=== PATIENT | female | born 1955 | race Caucasian/White ===

== ENCOUNTER 2017-01-21 18:24 | Emergency (ER) | payer BC ==
[2017-01-21 18:35] VITALS: BP 171/88
--- NOTE | 2017-01-21 18:55 | UC ---
Respiratory Complaint HPI - HPI Summary HPI Summary: 2 DAYS OF HARSH COUGH AND CHEST TIGHTNESS. FEVER TMAX 101.8. TOOK TYLENOL ABOUT AN HOUR AND A HALF AGO. FEELS ACHY AND OVERALL UNWELL. QUIT SMOKING OVER 30 YEARS AGO. - History of Current Complaint Chief Complaint: UCRespiratory Stated Complaint: DIFFICULTY BREATHING, COUGH,FEVER,ACHES Time Seen by Provider: 01/21/17 18:44 Hx Obtained From: Patient Onset/Duration: Gradual Onset, Lasting Days, Still Present Timing: Constant Severity Initially: Moderate Severity Currently: Moderate Pain Intensity: 10 - SITTING COMFORTABLY IN EXAM ROOM Pain Scale Used: 0-10 Numeric Character: Cough: Nonproductive Aggravating Factors: Nothing Alleviating Factors: Nothing Associated Signs And Symptoms: Positive: Fever - Allergies/Home Medications Allergies/Adverse Reactions: Allergies Allergy/AdvReac Type Severity Reaction Status Date / Time No Known Allergies Allergy Verified 09/11/16 10:25 Home Medications: Home Medications Acetaminophen [Tylenol] 650 mg PO 01/21/17 [History] GuaiFENesin DM* [Robitussin DM*] 10 ml PO Q6H PRN 01/21/17 [History Confirmed ] PMH/Surg Hx/FS Hx/Imm Hx Cardiovascular History: Hypertension - Surgical History Surgical History: Yes Surgery Procedure, Year, and Place: oopherectomy, hysterectomy - Family History Known Family History: Positive: Hypertension - Social History Alcohol Use: Daily Substance Use Type: None Smoking Status (MU): Never Smoked Tobacco Review of Systems Constitutional: Fever Respiratory: Cough Cardiovascular: Negative Gastrointestinal: Negative Musculoskeletal: Arthralgia, Myalgia All Other Systems Reviewed And Are Negative: Yes Physical Exam Triage Information Reviewed: Yes Appearance: Well-Appearing, No Pain Distress, Well-Nourished Vital Signs: Initial Vital Signs Temp 100.8 F 01/21/17 18:26 Pulse 97 01/21/17 18:26 Resp 18 01/21/17 18:26 BP 171/88 01/21/17 18:26 Pulse Ox 97 01/21/17 18:26 Vital Signs Reviewed: Yes Eyes: Positive: Conjunctiva Clear ENT: Positive: Hearing grossly normal, Pharynx normal, TMs normal Neck: Positive: Supple, Nontender, No Lymphadenopathy Respiratory Exam: Normal Cardiovascular Exam: Normal Abdomen Description: Positive: Soft Musculoskeletal: Positive: No Edema Neurological: Positive: Alert Psychological: Positive: Age Appropriate Behavior Skin: Negative: rashes UC Diagnostic Evaluation - Laboratory O2 Sat by Pulse Oximetry: 97 - Radiology Xray Interpretation: No Acute Changes - CHEST XRAY Radiology Interpretation Completed By: Radiologist Respiratory Course/Dx - Differential Dx/Diagnosis Provider Diagnoses: ACUTE BRONCHITIS Discharge - Discharge Plan Condition: Stable Disposition: HOME Prescriptions: Azithromycin [Azithromycin 500 MG TAB] 500 mg PO DAILY #4 tab guaiFENesin/CODIEN 100MG-10MG* [Robitussin AC 100Mg-10Mg*] 5 - 10 ml PO Q6H PRN #150 ml MDD 40 ml PRN Reason: Cough Patient Education Materials: Acute Bronchitis (ED) Referrals: Lucas Mehta MD [Primary Care Provider] - If Needed Additional Instructions: CHEST XRAY UNREMARKABLE TODAY. BE AWARE THAT THERE IS A GOOD CHANCE THAT YOUR SYMPTOMS ARE VIRAL AND WILL GET BETTER ON THEIR OWN WITH TIME BUT GIVEN YOUR PRESENTATION WE WILL COVER FOR BACTERIAL INFECTION WITH AZITHROMYCIN. SEEK FOLLOW-UP IF NOT IMPROVING EXPECTED.
[2017-01-21] MEDS ORDERED: Ibuprofen TAB* 600 MG PO ONE (19:06)
--- NOTE | 2017-01-21 19:34 | RAD ---
INDICATION: Cough and fever COMPARISON: None TECHNIQUE: PA and lateral dual-energy views were obtained. FINDINGS: Bones/Soft Tissues: There are no acute bony findings. There is a scoliotic deformity. Cardiomediastinal: The cardiomediastinal silhouette is normal. Lungs: There are no infiltrates. Pleura: There are no pleural effusions. Other: None IMPRESSION: NO ACTIVE DISEASE.
[2017-01-21] MEDS ORDERED: Azithromycin TAB* 250 MG PO ONE (19:51)
[2017-01-21] MEDS ORDERED: guaiFENesin/CODIEN 100MG-10MG* 5 ML UDC PO ONE (19:52)
== END 2017-01-21 20:00 | disposition home or self-care (01) ==
LOC: UCEAST 18:24
DX: J20.9 Acute bronchitis, unspecified (principal)
CPT/HCPCS: 71020; 99213; A9270-GY; G0463

== ENCOUNTER 2022-05-25 18:24 | Observation (INO) ==
[2022-05-25 18:53] LABS: ABS Lymphocytes 1.7 10^3/ul (1.0-4.8); ABS Monocytes 0.6 10^3/ul (0-0.8); ABS Neutrophils 2.4 10^3/ul (1.5-7.7); Eosinophil % 0.5 %; Hematocrit 41 % (35-47); Hemoglobin 13.4 g/dL (12.0-16.0); Lymphocyte % 36.2 %; Mean Corpuscular HGB Conc 33 g/dL (31-36); Mean Corpuscular Hemoglobin 32 pg (27-31); Mean Corpuscular Volume 98 fL (80-97); Mean Platelet Volume 7.6 fL (7.4-10.4); Nucleated Red Blood Cells % 0.1; Platelet Count 189 10^3/uL (150-450); Red Blood Count 4.21 10^6 /uL (3.70-4.87); Red Cell Distribution Width 14 % (10-15); White Blood Count 4.7 10^3/uL (3.5-10.8)
[2022-05-25 19:03] LABS: Activated Partial Thrombo Time 29.9 seconds (26.0-38.0); INR 1.03 (0.89-1.11)
[2022-05-25] MEDS ORDERED: Iodixanol (CONTRAST) 320 MG/ML 100 ML SDV IV ONE (19:10)
[2022-05-25 19:26] LABS: Albumin 4.6 g/dL (3.2-5.2); Albumin/Globulin Ratio 1.8 (1-3); Calcium 10.2 mg/dL (8.6-10.3); Globulin 2.6 g/dL (2-4); HDL Cholesterol 60.8 mg/dL; Total Bilirubin 0.7 mg/dL (0.2-1.0); Total Protein 7.2 g/dL (6.4-8.9); eGFR CKD-EPI 64.4 (>60)
[2022-05-25] MEDS ORDERED: Enoxaparin 40 MG/0.4 ML SYR SUBCUT SCH (23:45)
[2022-05-26 00:06] LABS: TSH Ultra Thyroid Stim Horm 7.34 mcIU/mL (0.34-5.60)
[2022-05-26 00:17] LABS: Folate 14.2 ng/mL (5.90-24.80)
[2022-05-26 15:46] VITALS: BP 127/69
== END 2022-05-26 17:05 | disposition home or self-care (01) ==
LOC: ED 18:24 → EDHOLD 18:24 → SUATTDRO 23:20 → MEDTELE 05-26 04:40
PROVIDERS: ADMIT Internal Medicine; ATTEND Internal Medicine